=== PATIENT | female | born 1945 | race Caucasian/White ===

== ENCOUNTER 2016-12-16 09:43 | Emergency (ER) | payer MEDICARE ==
--- NOTE | 2016-12-16 10:19 | ED.PDOC ---
History of Present Illness - General Chief Complaint: Respiratory Problem Stated Complaint: shortness of breath Time Seen by Provider: 12/16/16 10:05 Source: patient Exam Limitations: no limitations - History of Present Illness Initial Comments: Patient presents from clinic after having dyspnea for several seconds. She presented there for a cough and became dyspneic while on her way to the x-ray. She says she has had a cough for over a week that has gotten better. She said last night she was able to sleep without coughing. She believes her cough has essentially resolved but she still wanted to keep her doctor's appointment. No other complaints. 46 pack year hx of smoking. No hx of asthma nor diagnosed COPD. Timing/Duration: 1 week Severity: moderate Improving Factors: nothing Worsening Factors: nothing Associated Symptoms: denies symptoms Allergies/Adverse Reactions: Allergies Aspirin Allergy (Verified 02/25/15 17:43) Codeine Adverse Reaction (Verified 02/25/15 17:43) Home Medications: Ambulatory Orders Ofloxacin (Ophth) [Ofloxacin] 0.3 % OP Q2-3H #1 tube 02/25/15 Azithromycin [Zithromax Z-Tate] 1 ea PO DAILY #1 pack 12/16/16 Prednisone [Deltasone] 20 mg PO DAILY #5 tab 12/16/16 Review of Systems - Review of Systems Constitutional: States: see HPI EENTM: States: no symptoms reported Respiratory: States: see HPI Cardiology: States: no symptoms reported Gastrointestinal/Abdominal: States: no symptoms reported Genitourinary: States: no symptoms reported Musculoskeletal: States: no symptoms reported Skin: States: no symptoms reported Neurological: States: no symptoms reported Endocrine: States: no symptoms reported Hematologic/Lymphatic: States: no symptoms reported Past Medical History (General) - Patient Medical History Hx Hypertension: Yes Hx Thyroid Disease: Yes Hx Diabetes: Yes Hx Cancer: Yes - pancreatic Surgical History: Hysterectomy - Vaccination History Hx Tetanus, Diphtheria Vaccination: Yes - 06/25/10 Hx Influenza Vaccination: Yes Hx Pneumococcal Vaccination: Yes - Social History Hx Tobacco Use: No Hx Alcohol Use: Yes - Female History Patient is a Female of Child Bearing Age (10 -59 yrs old): No Patient : No Family Medical History - Family History Mother Family History: Unknown Physical Exam - Physical Exam General Appearance: Alert Ears, Nose, Throat: normal ENT inspection Neck: non-tender, full range of motion, supple Respiratory: other - distant breath sounds in RLL. Otherwise, clear to auscultation. Cardiovascular/Chest: normal peripheral pulses Gastrointestinal/Abdominal: normal bowel sounds, non tender, soft Extremity: normal range of motion Skin Exam: normal color Progress - Progress Progress: 12/16/16 11:02 Rapid strep negative. CXR showed no acute disease but indicative of COPD. wbc 12.4 with normal differential. Patient asymptomatic in the E.D. Sent home with a Z-pack and prednisone 20 mg po qd x 5 days Departure - Departure Clinical Impression: Dyspnea Disposition: Discharge to Home or Self Care Condition: Good Departure Forms: ED Discharge - Pt. Copy, Patient Portal Self Enrollment Diet: resume usual diet Activity: increase activity as tolerated Prescriptions: Prednisone [Deltasone] 20 mg PO DAILY #5 tab Azithromycin [Zithromax Z-Tate] 1 ea PO DAILY #1 pack Home Medications: Ambulatory Orders Ofloxacin (Ophth) [Ofloxacin] 0.3 % OP Q2-3H #1 tube 02/25/15 Azithromycin [Zithromax Z-Tate] 1 ea PO DAILY #1 pack 12/16/16 Prednisone [Deltasone] 20 mg PO DAILY #5 tab 12/16/16 Additional Instructions: May use over the counter cough and cold formulas as directed. Return to clinic or ER if symptoms do not resolve in 7 days.
--- NOTE | 2016-12-16 10:38 | RAD ---
EXAM DESCRIPTION: XR CHEST 2 VIEWS CLINICAL HISTORY: dyspnea COMPARISON: None available FINDINGS: The cardiomediastinal silhouette is unremarkable. The lungs are hyperinflated, but there is no airspace consolidation or pleural effusion. There is no pneumothorax or acute fracture. There is no radiographically apparent lung nodule. IMPRESSION: Pulmonary hyperinflation suggestive of COPD, but no acute intrathoracic abnormality. Electronically signed by: Kevin Worley DO 12/16/2016 10:37
[2016-12-16 11:46] VITALS: BP 127/58; TEMP 98.1; O2SAT 95
== END 2016-12-16 11:10 | disposition home or self-care (01) ==
LOC: ER 09:43
DX: R06.00 Dyspnea, unspecified (principal); I10 Essential (primary) hypertension; E07.9 Disorder of thyroid, unspecified; E11.9 Type 2 diabetes mellitus without complications; Z85.07 Personal history of malignant neoplasm of pancreas; Z88.6 Allergy status to analgesic agent

== ENCOUNTER → 2017-01-11 | Outpatient (CLI) | payer MEDICARE | END | disposition home or self-care (01) | LOC: GMAB 16:44 | PROVIDERS: ATTEND Family Medicine | DX: R06.02 Shortness of breath (principal); E03.9 Hypothyroidism, unspecified ==

== ENCOUNTER → 2017-03-30 | Outpatient (CLI) | payer MEDICARE ==
--- NOTE | 2017-03-30 12:49 | MAM ---
EXAM DESCRIPTION: Screening Mammogram,Bilateral CLINICAL HISTORY: 71 years, Female, Screening mammogram COMPARISON: May 02, 2012 TECHNIQUE: CC and MLO digital mammograms with computer aided detection. FINDINGS: There are scattered fibroglandular densities. There is no dominant mass nor any suspicious microcalcifications. Benign microcalcifications are present. IMPRESSION: BI-RADS 2: BENIGN FOLLOW-UP: Routine mammography screening. Electronically signed by: Moe Warren MD 03/30/2017 12:48 PM CDT
== END | disposition home or self-care (01) ==
LOC: MAMMO 08:57
PROVIDERS: ATTEND Family Medicine
DX: Z12.31 Encounter for screening mammogram for malignant neoplasm of breast (principal)

== ENCOUNTER → 2017-05-26 | Outpatient (CLI) | payer MEDICARE ==
[~2017-05-26] MED LIST: ALBUTEROL SULFATE 2.5 MG/3 ML VIAL NEB ONE
== END ==
LOC: RESP 13:26
PROVIDERS: ATTEND Family Medicine
DX: J44.1 Chronic obstructive pulmonary disease with (acute) exacerbation (principal)
CPT/HCPCS: 94060; J7611

== ENCOUNTER → 2018-02-27 | Outpatient (CLI) | payer MEDICARE | LOC: GMAB 10:55 | PROVIDERS: ATTEND Family Medicine | DX: E03.9 Hypothyroidism, unspecified (principal) ==

== ENCOUNTER → 2018-03-13 | Outpatient (CLI) | payer MEDICARE ==
--- NOTE | 2018-03-14 08:13 | US ---
EXAM DESCRIPTION: Carotid Duplex CLINICAL HISTORY: OCCLUSIION AND STENOSIS OF BILATERAL ARTERIES COMPARISON: January 24, 2015 TECHNIQUE: Carotid Doppler ultrasound FINDINGS: Bilateral carotid Doppler ultrasound shows significant calcified plaque formation in both carotid bifurcations and proximal internal carotids. Analysis of duplex waveforms and flow velocities shows velocity accelerations on both sides right somewhat greater than left. Peak systolic velocity right ICA 164 cm/s with end-diastolic velocity 37 cm/s. Peak systolic velocity left proximal ICA 112.9 cm a second with end-diastolic velocity 30.5 cm/s. Vertebrals patent with antegrade flow. IMPRESSION: 1. Bilateral calcified plaque. On the right this results in a 60-69% stenosis by NASCET criteria and on the left in the range of 30-49%. It would be useful to obtain CT angiography for better characterization of stenosis as well as plaque morphology. Findings have progressed since the comparison study in 2014 Electronically signed by: Moe Warren MD 03/14/2018 8:12 AM CDT
== END ==
LOC: US 12:45
PROVIDERS: ATTEND Family Medicine
DX: I65.23 Occlusion and stenosis of bilateral carotid arteries (principal); R05 Cough

== ENCOUNTER → 2018-08-15 | Outpatient (CLI) | payer MEDICARE ==
--- NOTE | 2018-08-17 09:58 | MAM ---
EXAM DESCRIPTION: 3D Screening BILATERAL : Digital Mammography. CLINICAL HISTORY: 73 years Female SCREENING . No complaints. No personal history of breast cancer. Remote family history of breast cancer. Childbirth. Postmenopausal. Currently on HRT. Lifetime risk of developing breast cancer (Tyrer-Cuzick model)(%): 4.2. COMPARISON: 2-D digital screening bilateral study 03/30/2017. TECHNIQUE: Bilateral CC and MLO projection full-field images, Digital tomosynthesis mammographic technique. Bilateral digital 2-D full-field MLO images. CAD not utilized. FINDINGS: The breast parenchymal density pattern is: Scattered areas of fibroglandular density. No skin thickening or nipple retraction. Scattered bilateral solitary microcalcifications. Bilateral vascular calcifications. No new focal, stellate mass or density, focal asymmetry , and no suspicious microcalcifications bilaterally. Stable mammograms compared to prior study. Taking into account, differences in mammographic technique. IMPRESSION: Benign exam. BIRAD CATEGORY: 2 BENIGN FINDINGS. RECOMMENDATIONS: FOLLOW UP: Routine digital bilateral screening, one year interval from July 2018. Written communication explaining the IMPRESSION and follow-up, will be mailed to the patient and referring health care provider. According to the [employer], yearly mammograms are recommended starting at age 40 and continuing as long as a woman is in good health. Any breast change noted on a breast self-exam should be reported promptly to the patient's healthcare provider. Breast MRI is recommended for women with an approximately 20-25% or greater lifetime risk of breast cancer, including women with a strong family history of breast or ovarian cancer and women who have been treated for Hodgkin's disease. A negative mammographic report should not delay tissue diagnosis in patients with significant clinical history or physical findings. Extremely dense breast tissue limits the sensitivity of digital mammography. Electronically signed by: Wisam Christian MD 08/17/2018 9:57 AM CDT
== END ==
LOC: MAMMO 11:49
PROVIDERS: ATTEND Family Medicine
DX: Z12.31 Encounter for screening mammogram for malignant neoplasm of breast (principal)